=== PATIENT | female | born 1955 | race Caucasian/White ===

== ENCOUNTER → 2022-01-01 | Outpatient (CLI) | payer MEDICARE, BC ==
--- NOTE | 2022-01-01 08:39 | BD ---
EXAMINATION TYPE: Axial Bone Density DATE OF EXAM: 01/01/2022 COMPARISON: FIRST DEXA AT [facility] CLINICAL HISTORY: 66 years year old Female. ICD-10 CODE: N95.1 menopausal Height: 65IN Weight: 126LB FRAX RISK QUESTIONS: Family History (Parent hip fracture): YES Secondary Osteoporosis: 3. Menopause before 45: YES RISK FACTORS HISTORY OF: Surgery to Wrist (right/left): YES MAC WRIST When: ABOUT 10 YEARS AGO Active: YES Postmenopausal woman: YES MEDICATIONS: Additional Medications: CALCIUM, VITAMIN D Additional History: EXAM MEASUREMENTS: Bone mineral densitometry was performed using the [employer] System. Bone mineral density as measured about the Lumbar spine is: ----- L1-L4(G/cm2): 0.972 T Score Values are as follows: ----- L1: -2.0 ----- L2: -2.0 ----- L3: -1.9 ----- L4: -1.3 ----- L1-L4: -1.7 FIRST DEXA AT [facility] Bone mineral density about the R hip (g/cm2): 0.787 Bone mineral density about the L hip (g/cm2): 0.702 T Score values are as follows: -----R Neck: -2.0 -----L Neck: -2.5 -----R Total: -1.7 -----L Total: -2.4 FRAX%s: The graph provided illustrates a 10.2% chance for a major osteoporotic fx and a 2.7% chance f or the hips probability for fx in 10 years time. IMPRESSION: Osteoporosis (T Score less than -2.5). There is increased fracture risk and therapy is usually indicated based on age. Re-Screen 1-2 years. NOTE: T-SCORE=SD OF THE YOUNG ADULT MEAN.
--- NOTE | 2022-01-06 08:18 | MM ---
Reason for Exam: Screening (asymptomatic). Last mammogram was performed 8 year(s) and 0 month(s) ago. Patient History: Menarche at age 13. First Full-Term at age 23. Postmenopausal. 1989, Implant(s). Maternal cousin had breast cancer. Risk Values: Peggy 5 year model risk: 1.5%. NCI Lifetime model risk: 5.4%. Prior Study Comparison: 08/29/2007 Screening Mammogram, [facility]. 10/08/2008 Screening Mammogram, [facility]. 08/13/2010 Bilateral Diagnostic Mammogram, [facility]. 08/16/2012 Bilateral MG screening mammo w CAD - 2, [facility]. 01/02/2014 Bilateral MG screening mammo w CAD - 2, [facility]. Tissue Density: There are scattered fibroglandular densities. Findings: Analyzed By CAD. There is no suspicious group of microcalcifications or new suspicious mass in either breast. Bilateral implants are intact. Overall Assessment: Benign, BI-RAD 2 Management: Screening Mammogram of both breasts in 1 year. A clinical breast exam by your physician is recommended on an annual basis and results should be correlated with mammographic findings. Electronically signed and approved by: Elmer Yadav M.D. Radiologis
== END | disposition home or self-care (01) ==
LOC: RADBDWWP 07:45
PROVIDERS: ATTEND Family Medicine
DX: Z12.31 Encounter for screening mammogram for malignant neoplasm of breast (principal); M81.0 Age-related osteoporosis without current pathological fracture; Z68.1 Body mass index [BMI] 19.9 or less, adult; Z78.0 Asymptomatic menopausal state; Z80.3 Family history of malignant neoplasm of breast
CPT/HCPCS: 77063; 77067; 77080

== ENCOUNTER → 2023-10-18 | Outpatient (CLI) | payer MEDICARE, BC ==
[2023-10-18 16:03] VITALS: BP 116/72; PULSE 71; RESP 12; TEMP 98.2
--- NOTE | 2023-10-18 16:41 | P.SLEEP ---
History of Present Illness H&P Date: 10/18/23 This is a 68-year-old female patient, who is coming in due to concerns of sleep apnea. During a recent surgery that was done under general anesthesia surgery involved resection of a ganglion cyst, the patient was noted to have some postoperative apneas that lasted for around 15 to 20 minutes during which she required airway manipulation. Based on that, there was concern for sleep apnea and the patient was referred to me. The patient has no reported witnessed apneas. No major hypersomnia or sleepiness during the day. She goes to bed at around 10 PM and she wakes up 4 AM in the morning. No daytime fatigue. No daytime sleepiness. No nocturnal episodes of choking or gasping for air. No grinding of the teeth. No sleepwalking or sleep talking. No nighttime heartburn palpitations chest pain or shortness of breath. The patient has no recent weight gain. She does not take any naps during the day. No history of any motor vehicle accidents because of feeling drowsy or sleepy. No head trauma. No intake of any muscle relaxants or narcotic medications. She has also undergone several surgeries for resection of a skin cancer that involved her right ear and scalp. No other major cardiovascular comorbidities. No personal or family history of sleep apnea. No restlessness in lower extremities. No history of seizure disorder. No stroke. Review of Systems Constitutional: Denies chills, Denies fever Eyes: denies as per HPI, denies blurred vision, denies bulging eye, denies decreased vision, denies diplopia, denies discharge, denies dry eye, denies irritation, denies itching, denies pain, denies photophobia, denies loss of peripheral vision, denies loss of vision, denies tunnel vision/blind spots Ears: deny: decreased hearing, ear discharge, earache, tinnitus Ears, nose, mouth and throat: Reports as per HPI Breasts: absent: as per HPI, change in shape, gynecomastia, masses, nipple discharge, pain, skin changes, swelling Cardiovascular: Denies chest pain, Denies shortness of breath Respiratory: Reports snoring Gastrointestinal: Reports as per HPI Genitourinary: Reports as per HPI Menstruation: Reports as per HPI Musculoskeletal: Reports as per HPI Musculoskeletal: absent: ankle pain, ankle stiffness, ankle swelling, as per HPI, elbow pain, elbow stiffness, elbow swelling, foot pain, foot stiffness, foot swelling, hand pain, hand stiffness, hand swelling, hip pain, hip stiffness, hip swelling, knee pain, knee stiffness, knee swelling, shoulder pain, shoulder stiffness, shoulder swelling, wrist pain, wrist stiffness, wrist swelling Integumentary: Reports as per HPI Neurological: Reports as per HPI Psychiatric: Reports as per HPI Endocrine: Reports as per HPI Hematologic/Lymphatic: Reports as per HPI Allergic/Immunologic: Reports as per HPI Past Medical History Past Medical History: Cancer Additional Past Medical History / Comment(s): Skin cancer in the form of basal cell carcinoma involving the right ear History of Any Multi-Drug Resistant Organisms: None Reported Past Surgical History: Orthopedic Surgery, Tonsillectomy Additional Past Surgical History / Comment(s): both thumbs basil joint, right thumb cyst, colonoscopy, right ear and r forehead skin surgery for cancer Past Anesthesia/Blood Transfusion Reactions: Previous Problems w/ Anesthesia, Motion Sickness, Postoperative Nausea & Vomiting (PONV) Past Psychological History: No Psychological Hx Reported Smoking Status: Never smoker Past Alcohol Use History: Rare Past Drug Use History: None Reported Medications and Allergies Home Medications Medication Instructions Recorded Confirmed Type FLUoxetine HCL [PROzac] 20 mg PO DAILY 10/18/23 10/18/23 History Allergies Allergy/AdvReac Type Severity Reaction Status Date / Time shellfish derived [Shellfish] Allergy Anaphylaxis Unverified 10/18/23 15:58 Physical Exam Vitals: Vital Signs Temp Pulse Resp BP Pulse Ox 10/18/23 16:02 98.2 F 71 12 116/72 97 Intake and Output 10/18/23 10/18/23 10/18/23 06:59 14:59 22:59 Other: Weight 56.245 kg The patient appeared well nourished and normally developed. Vital signs as documented. Head exam is unremarkable. No scleral icterus or corneal arcus noted. Neck is without jugular venous distension, thyromegaly, or carotid bruits. Carotid upstrokes are brisk bilaterally. The patient has significant crowding of posterior pharynx with a Mallampati class IV. Lungs are clear to auscultation and percussion. Cardiac exam reveals the PMI to be normally sized and situated. Rhythm is regular. First and second heart sounds normal. No murmurs, rubs or gallops. Abdominal exam reveals normal bowel sounds, no masses, no organomegaly and no aortic enlargement. Extremities are nonedematous and both femoral and pedal pulses are normal. Examination of the skin shows some scarring and anatomic resection of a skin cancer from the right ear/auricle. Neurologically, the patient is awake and alert and the patient does not have any focal neurological deficit. Cranial nerves are essentially intact. Assessment and Plan Plan: Loud snoring without any significant sleep fragmentation or daytime hypersomnia or sleepiness. Episodes of prolonged apneas following general anesthesia noted by anesthesiologist conducting the postoperative care. Smyrna score of 4 Mallampati class IV Basal cell carcinoma of the right ear postresection History of depression maintained on Prozac Plan The patient's overall functionality has been preserved. No reported fatigue or sleepiness during the day. Smyrna score is at 4. Based on above-mentioned history of apneas following general anesthesia, and history of snoring, we will do a home sleep study to investigate this patient for any underlying sleep breathing disorder. My overall clinical status patient for sleep apnea is quite low on this patient. Meanwhile, the patient has maintain good sleep hygiene measures. She has regular sleep schedule. No other major cardiovascular comorbidities. We reviewed the home sleep study was conducted and reported patient with results and make further recommendation should there be any need for treatment. Sleep Note - Sleep Data ESS Total: 4 - Sleep Note Sleep Note: Temperature: 98.2 F Pulse Rate: 71 Respiratory Rate: 12 Blood Pressure: 116/72 SpO2: 97 Height: 5 ft 6 in Weight: 56.245 kg BMI: Neck Circumference: 12.5
== END ==
LOC: 3 N SLEEP 14:47
PROVIDERS: ATTEND Internal Medicine Critical Care Medicine
CPT/HCPCS: 99211

== ENCOUNTER → 2023-11-03 | Outpatient (CLI) | payer MEDICARE, BC ==
--- NOTE | 2023-11-08 23:33 | P.PCN ---
Date of Procedure: 11/03/23 Operative Findings: Home sleep study testing Date of service is 11/03/2023 History This is a 68-year-old female patient, who is coming in due to concerns of sleep apnea. During a recent surgery that was done under general anesthesia surgery involved resection of a ganglion cyst, the patient was noted to have some postoperative apneas that lasted for around 15 to 20 minutes during which she required airway manipulation. Based on that, there was concern for sleep apnea and the patient was referred to me. The patient has no reported witnessed apneas. No major hypersomnia or sleepiness during the day. She goes to bed at around 10 PM and she wakes up 4 AM in the morning. No daytime fatigue. No da ytime sleepiness. No nocturnal episodes of choking or gasping for air. No grinding of the teeth. No sleepwalking or sleep talking. No nighttime heartburn palpitations chest pain or shortness of breath. The patient has no recent weight gain. She does not take any naps during the day. No history of any motor vehicle accidents because of feeling drowsy or sleepy. No head trauma. No intake of any muscle relaxants or narcotic medications. She has also undergone several surgeries for resection of a skin cancer that involved her right ear and scalp. No other major cardiovascular comorbidities. No personal or family history of sleep apnea. No restlessness in lower extremities. No history of seizure disorder. No stroke. Physical findings Height is 5 feet and 6 inches and weight is 56 kg Technical description The [employer] system was used to complete his type III home sleep study. The total recording duration was 9 hours and 19 minutes. The study started at 10:16 PM and ended at 7:35 AM. There was a total of 8 hours and 44 minutes of flow monitoring and 4 hours and 35 minutes of oxygen saturation monitoring. Results The respiratory evaluation showed a total of 512 obstructive apneas and 15 obstructive hypopneas. The resulting AHI was 60.2. This is consistent with severe obstructive sleep apnea Oxygenation analysis The patient had multiple oxygen saturations throughout the night with a pulse ox dropping more than 4%. Baseline pulse ox was 96%, average pulse ox was 92% and the lowest pulse ox was 82% during the sleep study. The patient spent approximately 43 minutes of sleep time below pulse ox of 89% Cardiac summary Average heart rate was 71 with a minimum heart rate of 41 and a maximum heart rate of 110 Assessment Severe obstructive sleep apnea with an AHI of 60 associated with nocturnal oxygen desaturations Loud snoring without any significant sleep fragmentation or daytime hypersomnia or sleepiness, Claude score of 4 Basal cell carcinoma of the right ear postresection History of depression maintained on Prozac Plan This patient has severe obstructive sleep apnea. Noted despite the severe disease, the patient's overall functionality has been preserved. No reported fatigue or sleepiness during the day. Claude score is at 4. Based on above-mentioned sleep study, the patient would benefit from CPAP therapy and the patient agrees to come in sleep center to undergo a titration with CPAP. Meanwhile, the patient has maintain good sleep hygiene measures. She has regular sleep schedule. No other major cardiovascular comorbidities.
== END ==
LOC: 3 N SLEEP 16:30
PROVIDERS: ATTEND Internal Medicine Critical Care Medicine
DX: G47.33 Obstructive sleep apnea (adult) (pediatric)

== ENCOUNTER 2023-11-20 19:18 | Outpatient (CLI) | payer MEDICARE, BC ==
--- NOTE | 2023-11-30 21:48 | P.PCN ---
Date of Procedure: 11/20/23 Operative Findings: History This is a 68-year-old female patient, who is coming in due to concerns of sleep apnea. During a recent surgery that was done under general anesthesia surgery involved resection of a ganglion cyst, the patient was noted to have some postoperative apneas that lasted for around 15 to 20 minutes during which she required airway manipulation. Based on that, there was concern for sleep apnea and the patient was referred to me. The patient has no reported witnessed apneas. No major hypersomnia or sleepiness during the day. She goes to bed at around 10 PM and she wakes up 4 AM in the morning. No daytime fatigue. No daytime sleepiness. No nocturnal episodes of choking or gasping for air. No grinding of the teeth. No sleepwalking or sleep talking. No nighttime heartburn palpitations chest pain or shortness of breath. The patient has no recent weight gain. She does not take any naps during the day. No history of any motor vehicle accidents because of feeling drowsy or sleepy. No head trauma. No intake of any muscle relaxants or narcotic medications. She has also undergone several surgeries for resection of a skin cancer that involved her right ear and scalp. No other major cardiovascular comorbidities. No personal or family history of sleep apnea. No restlessness in lower extremities. No history of seizure disorder. No stroke. The patient underwent a home sleep study on 11/03/2023 and the patient was found to have severe HEDY with an AHI of 60 and the patient is coming in for a CPAP titration study. Physical findings Height is 5 feet and 6 inches and weight is 56 kg Sleep architecture The patient spent a total of 371.5 minutes in bed. The total sleep time was 305 minutes. The overall sleep efficiency was calculated to be at 82.1%. The latency to sleep onset was 35.5 minutes. The sleep architecture was characterized by 7.2% stage I, 86.2% stage II, 0% stage III and IX 0.5% REM sleep. The total arousal index was 7.5. The latency to REM sleep was 59.5 minutes. Technical description The patient was studied using a standard complex polysomnography protocol that included recording of the Lead II EKG, Central, occipital and frontal EEG, right and left outer canthus EOG, submental EMG, right and left anterior tibialis EMG, respiratory airflow by thermocouple and or pressure/flow transducer, respiratory efforts by abdominal and thoracic PVDF belts, oxygen saturation by cable oximetry. Position by observation synchronized the PSG. Equipment used: [employer]. Stepwise CPAP titration was done to eliminate all obstructive respiratory events Results The patient was started on CPAP therapy, initially at a pressure of 7 cm of water pressure was gradually increased by 1 Cm Region CPAP Pressure of 11 Cm of Water. I Carefully Reviewed the CPAP Titration. The Patient Sleep Stage of Body Position. Noted during This Titration, the Patient Was Studied in Various Sleep Stages Including REM Sleep. The Patient Also Was Studied in the Supine and Nonsupine Body Position. This Was Successful Titration. The Pressure of 10 Cm of Water, no significant obstructive apneas or hypopneas were observed and there was no significant nocturnal oxygen desaturations. This was successful titration. Oxygenation analysis The patient had complete elevation of the obstructive respiratory events and oxygen desaturations while being on CPAP therapy specially target CPAP pressure of 10 cm of water. Cardiac summary Average heart rate was 71 with a minimum heart rate of 41 and a maximum heart rate of 110 Assessment Severe obstructive sleep apnea with an AHI of 60 associated with nocturnal oxygen desaturations, and the patient underwent a successful CPAP titration. Loud snoring without any significant sleep fragmentation or daytime hypersomnia or sleepiness, Drayden score of 4 Basal cell carcinoma of the right ear postresection History of depression maintained on Prozac Plan This patient has severe obstructive sleep apnea. The patient underwent a successful CPAP titration. Will start the patient on CPAP pressure of 10 cm of water with a C-Flex of 3. The patient will be also provided a AirFit P10 medium size nasal pillows. The patient will see me back in 30 to 90 days to assess clinical response and compliancy. Optimize sleep hygiene measures. Will continue to follow.
== END 2023-11-21 05:41 | disposition home or self-care (01) ==
LOC: 3 N SLEEP 19:18
PROVIDERS: ATTEND Internal Medicine Critical Care Medicine
DX: G47.33 Obstructive sleep apnea (adult) (pediatric) (principal); G47.36 Sleep related hypoventilation in conditions classified elsewhere; C44.212 Basal cell carcinoma of skin of right ear and external auricular canal; F32.A Depression, unspecified; Z91.013 Allergy to seafood
CPT/HCPCS: 95811

== ENCOUNTER → 2023-11-23 | Outpatient (CLI) | payer MEDICARE, BC ==
--- NOTE | 2023-11-24 23:51 | MR ---
EXAMINATION TYPE: MR knee RT wo con DATE OF EXAM: 11/23/2023 COMPARISON: Outside right knee x-ray November 15, 2023 HISTORY: Rt knee medial pain after fall injury TECHNIQUE: Multiplanar, multisequence images of the knee is performed without IV contrast. FINDINGS: MEDIAL MENISCUS: Triangular-shaped increased signal posterior horn likely extends to inferior articul ar surface. LATERAL MENISCUS: Horizontal increased signal anterior horn approaches the inferior articular surface . Less prominent oblique signal posterior horn does not abut articular surface CRUCIATE LIGAMENTS: The anterior and posterior cruciate ligaments are intact and unremarkable. COLLATERAL LIGAMENTS: The medial collateral ligament and lateral collateral ligament complex are inta ct and unremarkable. EXTENSOR MECHANISM: Visualized quadriceps and patellar tendons are intact. EFFUSION: No significant suprapatellar joint effusion. POPLITEAL CYST: No popliteal/andrade cyst. TRICOMPARTMENT SPACES: Mild tricompartment joint space loss. No significant spurring. CARTILAGE: Tricompartmental articular cartilage is maintained. BONE MARROW SIGNAL: There is irregular linear diminished T1 signal extending from the tibial condyles through the proximal metadiaphysis greatest anteriorly in the left tibia. There is some surrounding T2 hyperintensity. Finding corresponds to vague sclerosis on x-ray. OTHER: No additional significant abnormality is appreciated. IMPRESSION: 1. Subacute nondisplaced intra-articular fracture of the proximal tibia as detailed above. 2. At least intrasubstance probable full-thickness tear posterior horn medial meniscus. 3. Intrasubstance tears anterior and posterior horns of lateral meniscus. 4. Mild tricompartment degenerative changes are present as detailed above. [facility], Workstation: [address], 11/24/2023 11:49 PM
== END | disposition home or self-care (01) ==
LOC: RADMRIMAIN 11-21 13:52
PROVIDERS: ATTEND Orthopaedic Surgery
DX: M25.561 Pain in right knee